=== PATIENT | male | born 1970 | race Caucasian/White ===

== ENCOUNTER 2018-10-10 10:59 | Emergency (ER) | payer OTHER ==
[~2018-10-10] VITALS: Ht 180.3 cm; Wt 111.8 kg
[2018-10-10] MEDS ORDERED: ATOR1TAB21 PO (11:34)
[2018-10-10] MEDS ORDERED: VALS40TA9 PO (11:34)
[2018-10-10 13:00] VITALS: BP 123/74
== END 2018-10-10 13:08 | disposition home or self-care (01) ==
LOC: M ED 10:59
DX: S46.111A Strain of muscle, fascia and tendon of long head of biceps, right arm, initial encounter (principal); X50.0XXA Overexertion from strenuous movement or load, initial encounter; Y92.098 Other place in other non-institutional residence as the place of occurrence of the external cause; I10 Essential (primary) hypertension; Z79.899 Other long term (current) drug therapy